=== PATIENT | female | born 1935 | race Caucasian/White ===

== ENCOUNTER → 2017-02-03 | Outpatient (CLI) | payer MEDICARE, BC ==
[~2017-02-03] MED LIST: AFRI0.055; ATOR10 PO; BENZ1CAP34 PO; CALTTAB5 PO; CENTTAB9 PO; CETI10CH PO; INFLIXIMAB; LATA.005%O OD; LEVA500T PO; LEVO.075 PO; LUTE6CAP7; METH2.5 PO; TIMO0.255 OU; ZOLE5P IV
[2017-02-03 12:08] LABS: AUTOMATED NEUTROPHIL # 2.5 TH/MM3 (1.8-7.7); BASOPHIL # 0.1 TH/MM3 (0-0.2); BASOPHIL % 2.2 % (0.0-2.0); EOSINOPHIL # 0.1 TH/MM3 (0-0.4); EOSINOPHIL % 2.9 % (0.0-4.0); HEMO FLAGS DIFF FINAL; LYMPH % 32.1 % (9.0-44.0); LYMPHOCYTE # 1.6 TH/MM3 (1.0-4.8); MEAN CELL VOLUME 93.4 FL (80.0-100.0); MEAN CORPUSCULAR HEMOGLOBIN 31.2 PG (27.0-34.0); MEAN CORPUSCULAR HGB CONC 33.4 % (32.0-36.0); MONO % 14.3 % (0.0-8.0); NEUT % 48.5 % (16.0-70.0); PLATELET COUNT 213 TH/MM3 (150-450); RED BLOOD COUNT 4.18 MIL/MM3 (4.00-5.30); RED CELL DISTRIBUTION WIDTH 14.3 % (11.6-17.2); WHITE BLOOD COUNT 5.1 TH/MM3 (4.0-11.0)
[2017-02-03 12:48] LABS: WESTERGREN SEDIMENTATION RATE 31 mm/hr (0-30)
[2017-02-03 13:09] LABS: BICARBONATE 26.2 MEQ/L (21.0-32.0); INDIRECT BILIRUBIN 0.3 MG/DL (0.0-0.8); POTASSIUM 4.2 MEQ/L (3.5-5.1); TOTAL BILIRUBIN ADULT 0.4 MG/DL (0.2-1.0)
== END ==
LOC: CLAB 11:33
PROVIDERS: ATTEND Family Medicine
DX: E03.9 Hypothyroidism, unspecified (principal); M25.473 Effusion, unspecified ankle; K22.70 Barrett's esophagus without dysplasia; R53.83 Other fatigue; E78.5 Hyperlipidemia, unspecified; M19.90 Unspecified osteoarthritis, unspecified site; Z79.899 Other long term (current) drug therapy; M06.9 Rheumatoid arthritis, unspecified; M08.1 Juvenile ankylosing spondylitis
CPT/HCPCS: 36415; 80048; 80061; 80076; 84443; 85025; 85652

== ENCOUNTER 2017-04-23 12:16 | Observation (INO) | payer MEDICARE, BC ==
[~2017-04-23] VITALS: Ht 160 cm; Wt 71.5 kg
[2017-04-23 12:17] VITALS: BP 210/91; PULSE 68; RESP 16; TEMP 98.1; O2SAT 94
--- NOTE | 2017-04-23 13:17 | RADRPT ---
EXAM DATE/TIME: 04/23/2017 13:09 [facility] COMPARISON: No previous studies available for comparison. INDICATIONS : Short of breath, syncope, vomiting. MEDICAL HISTORY : None. SURGICAL HISTORY : None. ENCOUNTER: Initial ACUITY: 2 days PAIN SCORE: 0/10 LOCATION: Bilateral chest FINDINGS: PA and lateral views of the chest demonstrate the lungs to be symmetrically aerated without evidence of mass, infiltrate or effusion. The cardiomediastinal contours are unremarkable. Osseous structure s are intact. CONCLUSION: No acute disease. Jono Lim MD on April 23, 2017 at 13:14 Board Certified Radiologist. This report was verified electronically.
[2017-04-23 13:23] LABS: AUTOMATED NEUTROPHIL # 5.8 TH/MM3 (1.8-7.7); BASOPHIL % 0.6 % (0.0-2.0); EOSINOPHIL # 0.1 TH/MM3 (0-0.4); EOSINOPHIL % 1.4 % (0.0-4.0); HEMATOCRIT 37.9 % (35.0-46.0); HEMOGLOBIN 12.8 GM/DL (11.6-15.3); LYMPH % 14.1 % (9.0-44.0); LYMPHOCYTE # 1.1 TH/MM3 (1.0-4.8); MEAN CELL VOLUME 91.8 FL (80.0-100.0); MEAN CORPUSCULAR HEMOGLOBIN 30.9 PG (27.0-34.0); MEAN CORPUSCULAR HGB CONC 33.7 % (32.0-36.0); MEAN PLATELET VOLUME 8.6 FL (7.0-11.0); MONOCYTE # 0.6 TH/MM3 (0-0.9); NEUT % 75.9 % (16.0-70.0); PLATELET COUNT 216 TH/MM3 (150-450); RED BLOOD COUNT 4.13 MIL/MM3 (4.00-5.30); RED CELL DISTRIBUTION WIDTH 13.7 % (11.6-17.2); WHITE BLOOD COUNT 7.6 TH/MM3 (4.0-11.0)
[2017-04-23 13:31] LABS: BACTERIA, URINE RARE /hpf; BILIRUBIN, URINE NEG (NEG); BLOOD, URINE SMALL (NEG); GLUCOSE,URINE 150 mg/dL (NEG); KETONE, URINE NEG (NEG); MUCUS URINE FEW /lpf (OCC); NITRITE,URINE NEG (NEG); SQUAMOUS EPITHELIAL CELL URINE <1 /hpf (0-5); URIC ACID CRYSTALS, URINE RARE /hpf; URINE COLOR YELLOW (YELLW/STRAW); URINE LEUKOCYTE ESTERASE NEG (NEG)
[2017-04-23 13:34] LABS: PROTHROMBIN TIME - PATIENT 10.3 SEC (9.8-11.6)
[2017-04-23 13:53] LABS: ALBUMIN 3.4 GM/DL (3.4-5.0); ALKALINE PHOSPHATASE 71 U/L (45-117); ALT (GPT) 15 U/L (10-53); AST (GOT) 15 U/L (15-37); BICARBONATE 24.7 MEQ/L (21.0-32.0); BLOOD UREA NITROGEN 17 MG/DL (7-18); CALCIUM 9.6 MG/DL (8.5-10.1); CHLORIDE 103 MEQ/L (98-107); GLOMERULAR FILTRATION RATE 53 ML/MIN (>89); GLUCOSE,RANDOM 160 MG/DL (74-106); MAGNESIUM 2.3 MG/DL (1.5-2.5); SODIUM (NA) 135 MEQ/L (136-145); TOTAL BILIRUBIN ADULT 0.5 MG/DL (0.2-1.0); TOTAL PROTEIN 9.4 GM/DL (6.4-8.2); TROPONIN I LESS THAN 0.02 NG/ML (0.02-0.05)
--- NOTE | 2017-04-23 14:05 | RADRPT ---
EXAM DATE/TIME: 04/23/2017 13:51 [facility] COMPARISON: No previous studies available for comparison. INDICATIONS : Syncope, fall RADIATION DOSE: 34.04 CTDIvol (mGy) MEDICAL HISTORY : Thyroid disease SURGICAL HISTORY : None. ENCOUNTER: Initial ACUITY: 2 days PAIN SCALE: 10/10 LOCATION: Bilateral cranial TECHNIQUE: Multiple contiguous axial images were obtained of the head. Using automated exposure control and adj ustment of the mA and/or kV according to patient size, radiation dose was kept as low as reasonably a chievable to obtain optimal diagnostic quality images. DICOM format image data is available electro nically for review and comparison. FINDINGS: CEREBRUM: The ventricles are normal for age with mild to moderate atrophic change. Extensive periventricular wh ite matter lucencies are present. No evidence of midline shift, mass lesion, hemorrhage or acute infa rction. No extra-axial fluid collections are seen. POSTERIOR FOSSA: The cerebellum and brainstem are intact. The 4th ventricle is midline. The cerebellopontine angle i s unremarkable. EXTRACRANIAL: The visualized portion of the orbits is intact. SKULL: The calvaria is intact. No evidence of skull fracture. CONCLUSION: 1. Negative acute trauma study with no evidence of hemorrhage or fracture. 2. Atrophy and chronic small vessel ischemic change. Reagan Morillo MD on April 23, 2017 at 14:02 Board Certified Radiologist. This report was verified electronically.
[2017-04-23] MEDS ORDERED: LEVO75TA3 PO (14:21)
[2017-04-23] MEDS ORDERED: ATOR10TA15 PO (14:21)
[2017-04-23] MEDS ORDERED: LUTE20CA PO (14:21)
[2017-04-23] MEDS ORDERED: PRESCAP6 PO (14:21)
[2017-04-23] MEDS ORDERED: TIMO0.5S30 EACH EYE (14:21)
--- NOTE | 2017-04-23 14:38 | PD ---
HPI Chief Complaint: Syncope/Near-Syncope Time Seen by Provider: 14:37 Travel History International Travel<30 days: No Contact w/Intl Traveler<30days: No Traveled to known affect area: No History of Present Illness HPI 82-year-old female came to the emergency room with history of syncopal episode yesterday twice. Patient says once was in the morning while she was standing in her kitchen trying to fix some breakfast and the other one was in the afternoon in the living room. Both times the event happened unannounced. She did not feel it coming but she was fortunate not to fall hard and injured herself. After that she remained a little shaky and was not comfortable going outside or driving. Today she called her primary care to see if he would see her and he recommended her to come to the emergency room. Patient again was not comfortable driving and had her neighbor bring her here. Patient denies of any chest pain. No shortness of breath. No pain or aches anywhere. Vital signs are stable. There was blood work and CAT scan ordered from the triage by the triage provider. By the time I went to see her all the test results were back. PFSH Past Medical History Narrative Medical List of her past medical, surgical, social and family history reviewed from the nursing note. Arthritis: Yes Cancer: Yes (SKIN) High Cholesterol: Yes Glaucoma: Yes Thyroid Disease: Yes Social History Alcohol Use: Yes Tobacco Use: No Substance Use: No Allergies-Medications (Allergen,Severity, Reaction): Coded Allergies: No Known Allergies (Verified Allergy, Unknown, 04/23/17) Comments No known drug allergies. Reported Meds & Prescriptions Reported Meds & Active Scripts Active Reported Preservision-Lutein (Multiple Vitamins W/ Minerals) 1 Cap 1 Cap PO DAILY Timolol Opth Drops 0.5 % Soln 1 Drop EACH EYE BID Atorvastatin (Atorvastatin Calcium) 10 Mg Tab 10 Mg PO HS Levothyroxine (Levothyroxine Sodium) 75 Mcg Tab 75 Mcg PO DAILY [Remicaid Infusion] Narrative Medication List of her home medications reviewed from the nursing note. Review of Systems Except as stated in HPI: all other systems reviewed are Neg Neurologic: Positive: Syncope Physical Exam Narrative GENERAL: Awake, alert, elderly, no obvious SKIN: Focused skin assessment warm/dry. HEAD: Atraumatic. Normocephalic. EYES: Pupils equal and round. No scleral icterus. No injection or drainage. ENT: No nasal bleeding or discharge. Mucous membranes pink and moist. NECK: Trachea midline. No JVD. CARDIOVASCULAR: Regular rate and rhythm. No murmur appreciated. RESPIRATORY: No accessory muscle use. Clear to auscultation. Breath sounds equal bilaterally. GASTROINTESTINAL: Abdomen soft, non-tender, nondistended. Hepatic and splenic margins not palpable. MUSCULOSKELETAL: No obvious deformities. No clubbing. No cyanosis. No edema. NEUROLOGICAL: Awake and alert. No obvious cranial nerve deficits. Motor grossly within normal limits. Normal speech. PSYCHIATRIC: Appropriate mood and affect; insight and judgment normal. Data Data Last Documented VS Orders Orders Electrocardiogram (04/23/17 12:30) Complete Blood Count With Diff (04/23/17 12:30) Comprehensive Metabolic Panel (04/23/17 12:30) Magnesium (Mg) (04/23/17 12:30) Ckmb (Isoenzyme) Profile (04/23/17 12:30) Troponin I (04/23/17 12:30) Act Partial Throm Time (Ptt) (04/23/17 12:30) Prothrombin Time / Inr (Pt) (04/23/17 12:30) Urinalysis - C+S If Indicated (04/23/17 12:30) Chest, Pa & Lat (04/23/17 12:30) Ct Brain W/O Iv Contrast(Rout) (04/23/17 12:30) Admit Order (Ed Use Only) (04/23/17 15:22) Labs Laboratory Tests Test 04/23/17 12:45 04/23/17 13:00 White Blood Count 7.6 TH/MM3 Red Blood Count 4.13 MIL/MM3 Hemoglobin 12.8 GM/DL Hematocrit 37.9 % Mean Corpuscular Volume 91.8 FL Mean Corpuscular Hemoglobin 30.9 PG Mean Corpuscular Hemoglobin Concent 33.7 % Red Cell Distribution Width 13.7 % Platelet Count 216 TH/MM3 Mean Platelet Volume 8.6 FL Neutrophils (%) (Auto) 75.9 % Lymphocytes (%) (Auto) 14.1 % Monocytes (%) (Auto) 8.0 % Eosinophils (%) (Auto) 1.4 % Basophils (%) (Auto) 0.6 % Neutrophils # (Auto) 5.8 TH/MM3 Lymphocytes # (Auto) 1.1 TH/MM3 Monocytes # (Auto) 0.6 TH/MM3 Eosinophils # (Auto) 0.1 TH/MM3 Basophils # (Auto) 0.0 TH/MM3 CBC Comment DIFF FINAL Differential Comment Prothrombin Time 10.3 SEC Prothromb Time International Ratio 1.0 RATIO Activated Partial Thromboplast Time 24.7 SEC Blood Urea Nitrogen 17 MG/DL Creatinine 1.00 MG/DL Random Glucose 160 MG/DL Total Protein 9.4 GM/DL Albumin 3.4 GM/DL Calcium Level 9.6 MG/DL Magnesium Level 2.3 MG/DL Alkaline Phosphatase 71 U/L Aspartate Amino Transf (AST/SGOT) 15 U/L Alanine Aminotransferase (ALT/SGPT) 15 U/L Total Bilirubin 0.5 MG/DL Sodium Level 135 MEQ/L Potassium Level 3.4 MEQ/L Chloride Level 103 MEQ/L Carbon Dioxide Level 24.7 MEQ/L Anion Gap 7 MEQ/L Estimat Glomerular Filtration Rate 53 ML/MIN Total Creatine Kinase 80 U/L Troponin I LESS THAN 0.02 NG/ML Urine Color YELLOW Urine Turbidity CLEAR Urine pH 5.0 Urine Specific [place] 1.024 Urine Protein TRACE mg/dL Urine Glucose (UA) 150 mg/dL Urine Ketones NEG mg/dL Urine Occult Blood SMALL Urine Nitrite NEG Urine Bilirubin NEG Urine Urobilinogen LESS THAN 2.0 MG/DL Urine Leukocyte Esterase NEG Urine RBC 4 /hpf Urine WBC 3 /hpf Urine Squamous Epithelial Cells <1 /hpf Urine Uric Acid Crystals RARE /hpf Urine Bacteria RARE /hpf Urine Mucus FEW /lpf Microscopic Urinalysis Comment CULT NOT INDICATED MDM Medical Decision Making Medical Screen Exam Complete: Yes Emergency Medical Condition: Yes Medical Record Reviewed: Yes Interpretation(s) Twelve-lead EKG was reviewed by me. Normal sinus rhythm, left axis deviation, nonspecific ST-T wave changes. Heart rate of 75 bpm per Differential Diagnosis Syncope, arrhythmia, intracranial bleed Narrative Course 3:39 PM blood test results are back and within acceptable limits. UA is negative. Chest x-ray and CT scan are negative as well. However given her age and the nature of the events I have recommended that she should be admitted for observation. Patient has agreed to that. I discussed the case with the hospitalist was accepted the case. Procedures EKG Prior to Arrival: No Diagnosis Primary Impression: Syncope Qualified Codes: R55 - Syncope and collapse Admitting Information Admitting Physician Requests: Observation Scripts Walker with Front Wheels (Walker with Front Wheels) 1 Mis Mis EA .XX DIRECTED, #1 0 Refills Prov: Dolly Marti DO 04/25/17 Naproxen (Naproxen) 250 Mg Tab 250 MG PO Q8HR Y for pain, #20 TAB Prov: Dolly Marti DO 04/25/17 Lisinopril (Lisinopril) 5 Mg Tab 5 MG PO DAILY for Blood Pressure Management, #30 TAB Prov: Dolly Marti DO 04/25/17 Delmer Vázquez MD Apr 23, 2017 14:38
[2017-04-23 15:00] VITALS: BP 160/72; PULSE 72; RESP 15; O2SAT 97
--- NOTE | 2017-04-23 15:10 | EKG ---
Date Performed: 04/23/2017 Time Performed: 12:44:57 PTAGE: 82 years EKG: Sinus rhythm POSSIBLE LEFT ATRIAL ENLARGEMENT PATTERN CONSISTENT WITH PULMONARY DISEASE INCOMPLETE RIGHT BUNDLE B RANCH BLOCK LEFT ANTERIOR FASCICULAR BLOCK POSSIBLE LEFT VENTRICULAR HYPERTROPHY ABNORMAL ECG No sign ificant change from prior electrocardiogram. PREVIOUS TRACING : 08/29/1999 06.10 DOCTOR: Shahbaz Church Interpretating Date/Time 04/23/2017 15:10:06
--- NOTE | 2017-04-23 15:43 | HHI.HP ---
HPI Service [facility] Primary Care Physician Ned Ramirez MD Admission Diagnosis Syncope Diagnoses: (1) Near syncope (2) Syncope Chief Complaint: I almost passed out Travel History International Travel<30 Days: No Contact w/Intl Traveler <30 Da: No Traveled to Known Affected Are: No History of Present Illness 82 years old female with a past medical history of MGUS, chronic vertigo, Hyperlipidemia presented to the ED for evaluation of two episodes of syncope/ near syncope which occurred the morning of 04/22/17 without any associated vertigo. Patient states the first episode happened while she was standing in her kitchen, she states she starting seeing stars and contreras and the next thing she noticed was she was on the floor but denies any head trauma. She denies any dizziness associated it. The second episode happened shortly in the living room however she did not fall hard. She states, she did have breakfast prior to those two episodes. She states, she had no complaint the night prior and felt well the day prior as well. She denies any GI symptoms.There was not bladder or bowel dysfunction. She currently denies any Shortness of breath or chest pain. Head CT was negative Review of Systems Except as stated in HPI: all other systems reviewed are Neg Past Family Social History Past Medical History Chronic vertigo GERD History glaucoma Hyperlipidemia Hypothyroidism Osteoarthritis RA MGUS Past Surgical History Cataract removal Reported Medications Preservision-Lutein (Multiple Vitamins W/ Minerals) 1 Cap 1 Cap PO DAILY Timolol Opth Drops 0.5 % Soln 1 Drop EACH EYE BID Atorvastatin (Atorvastatin Calcium) 10 Mg Tab 10 Mg PO HS Levothyroxine (Levothyroxine Sodium) 75 Mcg Tab 75 Mcg PO DAILY [Remicaid Infusion] Allergies: Coded Allergies: No Known Allergies (Verified Allergy, Unknown, 04/23/17) Family History She denies any family history of Heart disease, DM Social History Alcohol Use: Yes Tobacco Use: No Substance Use: No Physical Exam Vital Signs Vital Signs Date Time Temp Pulse Resp B/P (MAP) Pulse Ox O2 Delivery O2 Flow Rate FiO2 04/23/17 12:17 98.1 68 16 210/91 (130) 94 Room Air Physical Exam GENERAL: This is a well-nourished, well-developed patient, in no apparent distress. SKIN: No rashes, ecchymoses or lesions. Cool and dry. HEAD: Atraumatic. Normocephalic. No temporal or scalp tenderness. EYES: Pupils equal round and reactive. Extraocular motions intact. No scleral icterus. No injection or drainage. ENT: Nose without bleeding, purulent drainage or septal hematoma. Throat without erythema, tonsillar hypertrophy or exudate. Uvula midline. Airway patent. NECK: Trachea midline. No JVD or lymphadenopathy. Supple, nontender, no meningeal signs. CARDIOVASCULAR: Regular rate and rhythm without murmurs, gallops, or rubs. RESPIRATORY: Clear to auscultation. Breath sounds equal bilaterally. No wheezes , rales, or rhonchi. GASTROINTESTINAL: Abdomen soft, non-tender, nondistended. No hepato-splenomegaly , or palpable masses. No guarding. MUSCULOSKELETAL: Extremities without clubbing, cyanosis, or edema. No joint tenderness, effusion, or edema noted. No calf tenderness. Negative Homans sign bilaterally. NEUROLOGICAL: Awake and alert. Cranial nerves II through XII intact. Motor and sensory grossly within normal limits. Five out of 5 muscle strength in all muscle groups. Normal speech. Laboratory Laboratory Tests Test 04/23/17 12:45 04/23/17 13:00 White Blood Count 7.6 Red Blood Count 4.13 Hemoglobin 12.8 Hematocrit 37.9 Mean Corpuscular Volume 91.8 Mean Corpuscular Hemoglobin 30.9 Mean Corpuscular Hemoglobin Concent 33.7 Red Cell Distribution Width 13.7 Platelet Count 216 Mean Platelet Volume 8.6 Neutrophils (%) (Auto) 75.9 Lymphocytes (%) (Auto) 14.1 Monocytes (%) (Auto) 8.0 Eosinophils (%) (Auto) 1.4 Basophils (%) (Auto) 0.6 Neutrophils # (Auto) 5.8 Lymphocytes # (Auto) 1.1 Monocytes # (Auto) 0.6 Eosinophils # (Auto) 0.1 Basophils # (Auto) 0.0 CBC Comment DIFF FINAL Differential Comment Prothrombin Time 10.3 Prothromb Time International Ratio 1.0 Activated Partial Thromboplast Time 24.7 Blood Urea Nitrogen 17 Creatinine 1.00 Random Glucose 160 Total Protein 9.4 Albumin 3.4 Calcium Level 9.6 Magnesium Level 2.3 Alkaline Phosphatase 71 Aspartate Amino Transf (AST/SGOT) 15 Alanine Aminotransferase (ALT/SGPT) 15 Total Bilirubin 0.5 Sodium Level 135 Potassium Level 3.4 Chloride Level 103 Carbon Dioxide Level 24.7 Anion Gap 7 Estimat Glomerular Filtration Rate 53 Total Creatine Kinase 80 Troponin I LESS THAN 0.02 Urine Color YELLOW Urine Turbidity CLEAR Urine pH 5.0 Urine Specific [place] 1.024 Urine Protein TRACE Urine Glucose (UA) 150 Urine Ketones NEG Urine Occult Blood SMALL Urine Nitrite NEG Urine Bilirubin NEG Urine Urobilinogen LESS THAN 2.0 Urine Leukocyte Esterase NEG Urine RBC 4 Urine WBC 3 Urine Squamous Epithelial Cells <1 Urine Uric Acid Crystals RARE Urine Bacteria RARE Urine Mucus FEW Microscopic Urinalysis Comment CULT NOT INDICATED Result Diagram: 04/23/17 1245 04/23/17 1245 Imaging Last Impressions Head CT 04/23/17 1230 Signed Impressions: Service Date/Time: Sunday, April 23, 2017 13:51 - CONCLUSION: 1. Negative acute trauma study with no evidence of hemorrhage or fracture. 2. Atrophy and chronic small vessel ischemic change. Reagan Morillo MD Chest X-Ray 04/23/17 1230 Signed Impressions: Service Date/Time: Sunday, April 23, 2017 13:09 - CONCLUSION: No acute disease. Jono Lim MD Septic Shock Reassessment Septic shock perfusion: reassessment completed Caprini VTE Risk Assessment Caprini VTE Risk Assessment: Mod/High Risk (score >= 2) Caprini Risk Assessment Model Point Value = 1 Point Value = 2 Point Value = 3 Point Value = 5 Age 41-60 Minor surgery BMI > 25 kg/m2 Swollen legs Varicose veins or History of unexplained or recurrent spontaneous Oral contraceptives or hormone replacement Sepsis (< 1 month) Serious lung disease, including pneumonia (< 1 month) Abnormal pulmonary function Acute myocardial infarction Congestive heart failure (< 1 month) History of inflammatory bowel disease Medical patient at bed rest Age 61-74 Arthroscopic surgery Major open surgery (> 45 min) Laparoscopic surgery (> 45 min) Malignancy Confined to bed (> 72 hours) Immobilizing plaster cast Central venous access Age >= 75 History of VTE Family history of VTE Factor V Leiden Prothrombin [id number] Lupus anticoagulant Anticardiolipin antibodies Elevated serum homocysteine Heparin-induced thrombocytopenia Other congenital or acquired thrombophilia Stroke (< 1 month) Elective arthroplasty Hip, pelvis, or leg fracture Acute spinal cord injury (< 1 month) Prophylaxis Regimen Total Risk Factor Score Risk Level Prophylaxis Regimen 0-1 Low Early ambulation 2 Moderate Order ONE of the following: *Sequential Compression Device (SCD) *Heparin 5000 units SQ BID 3-4 Higher Order ONE of the following medications: *Heparin 5000 units SQ TID *Enoxaparin/Lovenox 40 mg SQ daily (WT < 150 kg, CrCl > 30 mL/min) *Enoxaparin/Lovenox 30 mg SQ daily (WT < 150 kg, CrCl > 10-29 mL/min) *Enoxaparin/Lovenox 30 mg SQ BID (WT < 150 kg, CrCl > 30 mL/min) AND/OR *Sequential Compression Device (SCD) 5 or more Highest Order ONE of the following medications: *Heparin 5000 units SQ TID (Preferred with Epidurals) *Enoxaparin/Lovenox 40 mg SQ daily (WT < 150 kg, CrCl > 30 mL/min) *Enoxaparin/Lovenox 30 mg SQ daily (WT < 150 kg, CrCl > 10-29 mL/min) *Enoxaparin/Lovenox 30 mg SQ BID (WT < 150 kg, CrCl > 30 mL/min) AND *Sequential Compression Device (SCD) Assessment and Plan Problem List: (1) Near syncope ICD Code: R55 - Syncope and collapse (2) Syncope ICD Code: R55 - Syncope and collapse Status: Acute Assessment and Plan 82 years old female with Near syncope/syncope This appears to be vasovagal Head CT noted and review by without any intracranial abnormality CXR noted and review by me without any cardiopulmonary disease CBC, initial Cardiac enzyme unremarkable Check carotid US, EEG as well as 2 D echo Check Orthostatic BP Achieve BP control PT consult to treat and eval Neurology necessary Hypokalemia Give Potassium 60Meq x1 Elevated Blood glucose Check hemoglobin A1C Benign labile hypertension Adjust BP medication accordingly Will start low dose Lisinopril 5mg daily Avoid rapid reduction/correction of BP DVT prophylaxis: B-SCD Code Status Full code Discussed Condition With patient, ED physician Problem Qualifiers (1) Syncope: Qualified Codes: R55 - Syncope and collapse Jono Mccollum MD Apr 23, 2017 15:43
[2017-04-23] MEDS ORDERED: ACETAMINOPHEN 325 MG TAB PO PRN (15:45)
[2017-04-23] MEDS ORDERED: NALOXONE HCL 0.4 MG/ML AMP IV PUSH PRN (15:45)
[2017-04-23] MEDS ORDERED: RESP: ALBUTEROL 2.5 MG/IPRATROPIUM 0.5 MG NEB (PRN) NEB (15:45)
[2017-04-23] MEDS ORDERED: ENALAPRILAT 2.5 MG/2 ML VIAL IV PUSH PRN (15:45)
[2017-04-23] MEDS ORDERED: SODIUM CHLORIDE 0.9% FLUSH 10 ML FLUSH IV FLUSH PRN (15:45)
[2017-04-23] MEDS ORDERED: ONDANSETRON HCL 4 MG/2 ML VIAL IVP PRN (15:45)
[2017-04-23 16:09] VITALS: BP 158/67
[2017-04-23 17:44] VITALS: BP 173/80; PULSE 74; RESP 18; TEMP 98; O2SAT 93
[2017-04-23] MEDS ORDERED: POTASSIUM CHLORIDE 10 MEQ CONTROLLED RELEASE TAB PO ONE (18:30)
[2017-04-23 19:47] VITALS: BP_SYST 170; BP_SYST 174; BP_SYST 191; BP_DIAS 74; BP_DIAS 81; BP_DIAS 85; PULSE 79; RESP 20; TEMP 97.7; O2SAT 93
[2017-04-23] MEDS ORDERED: TEMAZEPAM 15 MG CAP PO PRN (21:00)
[2017-04-23] MEDS ORDERED: METOPROLOL TARTRATE 50 MG TAB PO SCH (21:00)
--- NOTE | 2017-04-23 21:31 | RADRPT ---
EXAM DATE/TIME: 04/23/2017 20:52 [facility] COMPARISON: No previous studies available for comparison. INDICATIONS : Stenosis. MEDICAL HISTORY : Hypercholesterolemia. Hypothyroidism. Rheumatoid arthritis. Hypothyroidism. Chronic vertigo. Glaucoma . Hyperlipidemia. Arthritis. SURGICAL HISTORY : Cataract removal. ENCOUNTER: Initial ACUITY: 1 day PAIN SCORE: 0/10 LOCATION: Bilateral neck PEAK SYSTOLIC VELOCITIES (cm/sec): ICA/CCA RATIO: Right: 1.1 Left: 1.2 ICA: Right: 74 Left: 78 CCA: Right: 67 Left: 64 ECA: Right: 82 Left: 116 VERTEBRAL: Right: 39 antegrade Left: 35 antegrade Elevated flow velocities and ICA/CCA ratios have been found to correlate with increased degrees of vessel stenosis, calculated as percentage of diameter relative to a normal segment of distal ICA/CCA FINDINGS: RIGHT CAROTID: No significant stenosis is visualized. The waveforms are within normal limits. LEFT CAROTID: No significant stenosis is visualized. The waveforms are within normal limits. VERTEBRAL ARTERIES: Antegrade flow is seen in both vertebral arteries. MISCELLANEOUS: None. CONCLUSION: No acute disease. Doe Huang MD on April 23, 2017 at 21:27 Board Certified Radiologist. This report was verified electronically.
[2017-04-23] MEDS: SODIUM CHLORIDE 0.9% FLUSH 10 ML FLUSH IV FLUSH SCH (21:56)
[2017-04-23] MEDS: ACETAMINOPHEN 325 MG TAB PO PRN (21:56)
[2017-04-23] MEDS: ATORVASTATIN 10 MG TAB PO SCH (21:56)
[2017-04-23] MEDS: TIMOLOL MALEATE 0.5% OPHT SOLN 5 ML BTL EACH EYE SCH (22:31)
[2017-04-23 23:36] VITALS: BP 153/72; PULSE 71; RESP 18; TEMP 98.2; O2SAT 92
[2017-04-24 03:45] VITALS: BP 169/77; PULSE 77; RESP 18; TEMP 98.2; O2SAT 93
[2017-04-24] MEDS: LEVOTHYROXINE SODIUM 75 MCG TAB PO SCH (06:06)
[2017-04-24 07:32] LABS: AUTOMATED NEUTROPHIL # 4.5 TH/MM3 (1.8-7.7); BASOPHIL # 0.1 TH/MM3 (0-0.2); BASOPHIL % 1.2 % (0.0-2.0); EOSINOPHIL # 0.2 TH/MM3 (0-0.4); EOSINOPHIL % 2.8 % (0.0-4.0); HEMATOCRIT 37.6 % (35.0-46.0); HEMOGLOBIN 12.8 GM/DL (11.6-15.3); LYMPH % 22.2 % (9.0-44.0); LYMPHOCYTE # 1.7 TH/MM3 (1.0-4.8); MEAN CELL VOLUME 91.1 FL (80.0-100.0); MEAN CORPUSCULAR HEMOGLOBIN 30.9 PG (27.0-34.0); MEAN CORPUSCULAR HGB CONC 33.9 % (32.0-36.0); MEAN PLATELET VOLUME 8.7 FL (7.0-11.0); MONO % 13.7 % (0.0-8.0); NEUT % 60.1 % (16.0-70.0); PLATELET COUNT 193 TH/MM3 (150-450); RED BLOOD COUNT 4.13 MIL/MM3 (4.00-5.30); RED CELL DISTRIBUTION WIDTH 13.5 % (11.6-17.2); WHITE BLOOD COUNT 7.5 TH/MM3 (4.0-11.0)
[2017-04-24 07:58] LABS: ALBUMIN 3.2 GM/DL (3.4-5.0); ALKALINE PHOSPHATASE 69 U/L (45-117); ALT (GPT) 14 U/L (10-53); AST (GOT) 15 U/L (15-37); BICARBONATE 24.5 MEQ/L (21.0-32.0); BLOOD UREA NITROGEN 11 MG/DL (7-18); CALCIUM 9.4 MG/DL (8.5-10.1); CHLORIDE 105 MEQ/L (98-107); CREATININE 0.87 MG/DL (0.50-1.00); GLOMERULAR FILTRATION RATE 62 ML/MIN (>89); GLUCOSE,RANDOM 93 MG/DL (74-106); SODIUM (NA) 138 MEQ/L (136-145); TOTAL BILIRUBIN ADULT 0.5 MG/DL (0.2-1.0); TOTAL PROTEIN 9.1 GM/DL (6.4-8.2)
[2017-04-24] MEDS: SODIUM CHLORIDE 0.9% FLUSH 10 ML FLUSH IV FLUSH SCH ×2 (09:00→21:01)
[2017-04-24] MEDS: LISINOPRIL 5 MG TAB PO SCH (10:17)
[2017-04-24] MEDS: TIMOLOL MALEATE 0.5% OPHT SOLN 5 ML BTL EACH EYE SCH ×2 (10:17→21:00)
[2017-04-24] MEDS: ACETAMINOPHEN 325 MG TAB PO PRN (10:18)
--- NOTE | 2017-04-24 11:50 | HHI.PR ---
Subjective Remarks For fall, syncope. Patient is currently doing well. She complains of right- sided hip pain. No chest pain, shortness of breath, fever or chills. Objective Vitals Vital Signs Date Time Temp Pulse Resp B/P (MAP) Pulse Ox O2 Delivery O2 Flow Rate FiO2 04/24/17 03:45 98.2 77 18 169/77 (107) 93 04/23/17 23:36 98.2 71 18 153/72 (99) 92 04/23/17 19:47 97.7 79 20 170/74 (106) 93 191/85 (120) 174/81 (112) 04/23/17 17:44 98.0 74 18 173/80 (111) 93 04/23/17 16:09 158/67 (97) 04/23/17 15:00 72 15 160/72 (101) 97 Room Air 04/23/17 12:17 98.1 68 16 210/91 (130) 94 Room Air I/O 04/23/17 04/23/17 04/23/17 04/24/17 04/24/17 04/24/17 07:00 15:00 23:00 07:00 15:00 23:00 Intake Total 275 ml 480 ml Balance 275 ml 480 ml Intake Oral 275 ml 480 ml # Voids 2 Result Diagram: 04/24/17 0605 04/24/17 0605 Imaging Last Impressions Head CT 04/23/17 1230 Signed Impressions: Service Date/Time: Sunday, April 23, 2017 13:51 - CONCLUSION: 1. Negative acute trauma study with no evidence of hemorrhage or fracture. 2. Atrophy and chronic small vessel ischemic change. Reagan Morillo MD Chest X-Ray 04/23/17 1230 Signed Impressions: Service Date/Time: Sunday, April 23, 2017 13:09 - CONCLUSION: No acute disease. Jono Lim MD Carotid Artery Ultrasound 04/23/17 0000 Signed Impressions: Service Date/Time: Sunday, April 23, 2017 20:52 - CONCLUSION: No acute disease. Doe Huang MD Objective Remarks GENERAL: Alert, oriented 3, NAD. SKIN: Warm and dry. HEAD: Normocephalic. EYES: No scleral icterus. No injection or drainage. NECK: Supple, trachea midline. No JVD or lymphadenopathy. CARDIOVASCULAR: Regular rate and rhythm without murmurs, gallops, or rubs. RESPIRATORY: Breath sounds equal bilaterally. No accessory muscle use. GASTROINTESTINAL: Abdomen soft, non-tender, nondistended. MUSCULOSKELETAL: No cyanosis, or edema. BACK: Nontender without obvious deformity. No CVA tenderness. Procedures None A/P Problem List: (1) Near syncope ICD Code: R55 - Syncope and collapse (2) Syncope ICD Code: R55 - Syncope and collapse Status: Acute Assessment and Plan 82-year-old female came to the emergency room with history of syncopal episode on 04/22/2017 twice. Patient says once was in the morning while she was standing in her kitchen trying to fix some breakfast and the other one was in the afternoon in the living room. Both times the event happened unannounced. - Syncope, near syncope - Fall - Right hip pain - Likely vasovagal. CT head, CXR, Carotid US so far negative. - PT evaluation pending - Will obtain Hip Xray - Mild hypokalemia - resolved after KCL supplementation. - Hypertension - Hypothyroidism - Continue Lisinopril 5mg Qday - PRN Vasotec - Continue levothyroxine 75 g daily Full code. SCDs. Problem Qualifiers (1) Syncope: Qualified Codes: R55 - Syncope and collapse Dolly Marti DO Apr 24, 2017 11:50 am
[2017-04-24] MEDS ORDERED: traMADol HCL 50 MG TAB PO PRN (15:00)
--- NOTE | 2017-04-24 16:02 | RADRPT ---
EXAM DATE/TIME: 04/24/2017 15:55 [facility] COMPARISON: No previous studies available for comparison. INDICATIONS : Bilateral pelvic pain; fell yesterday. MEDICAL HISTORY : None. SURGICAL HISTORY : None. ENCOUNTER: Initial ACUITY: 2 days PAIN SCORE: 8/10 LOCATION: Bilateral pelvis FINDINGS: A single frontal view of the pelvis demonstrates no evidence of fracture. The bony pelvic ring is in tact. There is mild osteopenia. The soft tissues are intact. CONCLUSION: Negative trauma study with no evidence of fracture or malalignment. Regaan Morillo MD on April 24, 2017 at 15:58 Board Certified Radiologist. This report was verified electronically.
[2017-04-24 16:49] VITALS: BP 150/70; PULSE 69; RESP 18; TEMP 95.6; O2SAT 96
[2017-04-24] MEDS ORDERED: ACETAMINOPHEN/HYDROcodone 325 MG/5 MG TAB PO PRN (17:00)
[2017-04-24] MEDS ORDERED: cloNIDine HCL 0.1 MG TAB PO PRN (17:00)
[2017-04-24 17:18] LABS: HEMOGLOBIN A1C 5.9 % (4.3-6.0)
[2017-04-24 20:49] VITALS: BP 104/56; PULSE 70; RESP 17; TEMP 98; O2SAT 94
[2017-04-24] MEDS: ATORVASTATIN 10 MG TAB PO SCH (21:01)
--- NOTE | 2017-04-24 22:15 | MG ---
cc: ROSSY BEAUCHAMP MD Lab No: [id number] Date: 04/24/17 Age: 82 Sex: F Race: 1935 An 82-year-old female with history of syncope. 7- 9 Hz posterior rhythm, 20-50 microvolts. Frontal beta theta frequencies, good anterior to posterior gradient. Background slowing transitioned into drowsy state. Bursts of theta and delta occurring paroxysmally. Good EEG variability reactivity noted. Occasional eye movement blink artifact. Reasonable driving response with photic stimulation. Single lead EKG showing sinus rhythm. into stage I sleep as well. INTERPRETATION Normal awake sleep EEG. Clinical correlation. Rossy Beauchamp MD MG/ /9:14 PM /9:57 PM
--- NOTE | 2017-04-24 22:37 | RADRPT ---
EXAM DATE/TIME: 04/24/2017 19:52 [facility] COMPARISON: No previous studies available for comparison. INDICATIONS : Middle back pain after fall. MEDICAL HISTORY : None. SURGICAL HISTORY : None. ENCOUNTER: Initial ACUITY: 3 days PAIN SCORE: 10/10 LOCATION: middle back. FINDINGS: Degenerative changes are noted throughout the thoracic spine. There is mild compression deformity inv olving T11 of indeterminate age. Mild scoliosis of the thoracic spine is noted. CONCLUSION: Mild compression deformity involving T11 of indeterminate age. Degenerative changes t hroughout the thoracic spine. Mild scoliosis of the thoracic spine. Doe Huang MD on April 24, 2017 at 22:33 Board Certified Radiologist. This report was verified electronically.
--- NOTE | 2017-04-24 22:39 | RADRPT ---
EXAM DATE/TIME: 04/24/2017 19:57 [facility] COMPARISON: No previous studies available for comparison. INDICATIONS : Lower back pain after fall. MEDICAL HISTORY : None. SURGICAL HISTORY : None. ENCOUNTER: Initial ACUITY: 3 days PAIN SCORE: 10/10 LOCATION: lower back. FINDINGS: There is mild compression deformity involving the T11 vertebral body of indeterminate age. Clinical c orrelation is recommended. Degenerative changes are noted throughout the lumbar spine. There is no ac osage compression fracture of lumbar spine. No subluxation occurs during flexion or extension. CONCLUSION: Mild compression deformity involving T11 of indeterminate age. Clinical correlation is recommended. D egenerative changes within the lumbar spine. No acute compression fracture of lumbar spine. No sublux ation during flexion or extension. Doe Huang MD on April 24, 2017 at 22:35 Board Certified Radiologist. This report was verified electronically.
[2017-04-24 23:45] VITALS: BP 111/62; PULSE 71; RESP 17; TEMP 97.6; O2SAT 94
[2017-04-25 04:05] VITALS: BP 123/68; PULSE 74; RESP 17; TEMP 98; O2SAT 94
[2017-04-25] MEDS: LEVOTHYROXINE SODIUM 75 MCG TAB PO SCH (05:33)
[2017-04-25 07:41] VITALS: BP_SYST 111; BP_SYST 135; BP_SYST 136; BP_DIAS 62; BP_DIAS 77; BP_DIAS 86; PULSE 85; RESP 18; TEMP 98; O2SAT 95
[2017-04-25] MEDS: LISINOPRIL 5 MG TAB PO SCH (10:25)
[2017-04-25] MEDS: SODIUM CHLORIDE 0.9% FLUSH 10 ML FLUSH IV FLUSH SCH (10:27)
[2017-04-25] MEDS: TIMOLOL MALEATE 0.5% OPHT SOLN 5 ML BTL EACH EYE SCH (10:28)
[2017-04-25] MEDS ORDERED: KETOROLAC TROMETHAMINE 30 MG/ML (IVP) VIAL IV PUSH ONE (11:00)
[2017-04-25] MEDS ORDERED: NAPROXEN 250 MG TAB PO PRN (11:00)
[2017-04-25 11:50] VITALS: BP 111/63; PULSE 78; RESP 18; TEMP 98.3; O2SAT 92
[2017-04-25] MEDS ORDERED: LISI-519 PO (12:33)
[2017-04-25] MEDS ORDERED: WALKER WHEELS/F1 MIS ×2 (12:34→13:39)
[2017-04-25] MEDS ORDERED: NAPR250T4 PO (12:34)
--- NOTE | 2017-04-25 12:36 | HHI.DS ---
Discharge Summary Admission Date Apr 23, 2017 at 3:36 pm Discharge Date: Apr 25, 2017 Admitting Diagnosis Syncope (1) Near syncope ICD Code: R55 - Syncope and collapse (2) Syncope ICD Code: R55 - Syncope and collapse Status: Acute Procedures None Brief History - From Admission 82 years old female with a past medical history of MGUS, chronic vertigo, Hyperlipidemia presented to the ED for evaluation of two episodes of syncope/ near syncope which occurred the morning of 04/22/17 without any associated vertigo. Patient states the first episode happened while she was standing in her kitchen, she states she starting seeing stars and contreras and the next thing she noticed was she was on the floor but denies any head trauma. She denies any dizziness associated it. The second episode happened shortly in the living room however she did not fall hard. She states, she did have breakfast prior to those two episodes. She states, she had no complaint the night prior and felt well the day prior as well. She denies any GI symptoms.There was not bladder or bowel dysfunction. She currently denies any Shortness of breath or chest pain. Head CT was negative CBC/BMP: 04/24/17 0605 04/24/17 0605 Significant Findings Laboratory Tests Test 04/23/17 12:45 04/23/17 13:00 04/24/17 06:05 Neutrophils (%) (Auto) 75.9 % (16.0-70.0) Random Glucose 160 MG/DL (74-106) Total Protein 9.4 GM/DL (6.4-8.2) 9.1 GM/DL (6.4-8.2) Sodium Level 135 MEQ/L (136-145) Potassium Level 3.4 MEQ/L (3.5-5.1) Estimat Glomerular Filtration Rate 53 ML/MIN (>89) 62 ML/MIN (>89) Troponin I LESS THAN 0.02 NG/ML Urine Glucose (UA) 150 mg/dL (NEG) Urine Occult Blood SMALL (NEG) Urine RBC 4 /hpf (0-3) Urine Uric Acid Crystals RARE /hpf (NONE) Urine Bacteria RARE /hpf (NONE) Urine Mucus FEW /lpf (OCC) Monocytes (%) (Auto) 13.7 % (0.0-8.0) Monocytes # (Auto) 1.0 TH/MM3 (0-0.9) Albumin 3.2 GM/DL (3.4-5.0) Imaging Last Impressions Thoracic Spine X-Ray 04/24/17 0000 Signed Impressions: Service Date/Time: April 19:52 - CONCLUSION: Mild compression deformity involving T11 of indeterminate age. Degenerative changes throughout the thoracic spine. Mild scoliosis of the thoracic spine. Doe Huang MD Pelvis X-Ray 04/24/17 0000 Signed Impressions: Service Date/Time: April 15:55 - CONCLUSION: Negative trauma study with no evidence of fracture or malalignment. Reagan Morillo MD Lumbar Spine X-Ray 04/24/17 0000 Signed Impressions: Service Date/Time: April 19:57 - CONCLUSION: Mild compression deformity involving T11 of indeterminate age. Clinical correlation is recommended. Degenerative changes within the lumbar spine. No acute compression fracture of lumbar spine. No subluxation during flexion or extension. Doe Huang MD Head CT 04/23/17 1230 Signed Impressions: Service Date/Time: Sunday, April 23, 2017 13:51 - CONCLUSION: 1. Negative acute trauma study with no evidence of hemorrhage or fracture. 2. Atrophy and chronic small vessel ischemic change. Reagan Morillo MD Chest X-Ray 04/23/17 1230 Signed Impressions: Service Date/Time: Sunday, April 23, 2017 13:09 - CONCLUSION: No acute disease. Jono Lim MD Carotid Artery Ultrasound 04/23/17 0000 Signed Impressions: Service Date/Time: Sunday, April 23, 2017 20:52 - CONCLUSION: No acute disease. Doe Huang MD PE at Discharge GENERAL: Alert, oriented 3, NAD. SKIN: Warm and dry. HEAD: Normocephalic. EYES: No scleral icterus. No injection or drainage. NECK: Supple, trachea midline. No JVD or lymphadenopathy. CARDIOVASCULAR: Regular rate and rhythm without murmurs, gallops, or rubs. RESPIRATORY: Breath sounds equal bilaterally. No accessory muscle use. GASTROINTESTINAL: Abdomen soft, non-tender, nondistended. MUSCULOSKELETAL: No cyanosis, or edema. BACK: Nontender without obvious deformity. No CVA tenderness. Pt update on day of discharge Patient is currently doing well. No further syncopal episodes. No fever, chills. She has some back pain and wants to take acetaminophen and Naproxen. advised patient to take Naproxen with food. Hospital Course 82-year-old female came to the emergency room with history of syncopal episode on 04/22/2017 twice. Patient says once was in the morning while she was standing in her kitchen trying to fix some breakfast and the other one was in the afternoon in the living room. Both times the event happened unannounced. - Syncope, near syncope - Fall - Right hip pain - Likely vasovagal. CT head, CXR, Carotid US so far negative. - PT recommended home health PT. - Hip X-ray shows no acute fracture. - Lumbar spine x-ray shows mild compression deformity involving T11. Naproxen can be taken for pain/inflammation. - Echocardiogram is unremarkable. - Mild hypokalemia - resolved after KCL supplementation. - Hypertension - Hypothyroidism - Continue Lisinopril 5mg Qday - PRN Vasotec - Continue levothyroxine 75 g daily Full code. SCDs. Pt Condition on Discharge: Good Discharge Disposition: Disch w/ Home Health Serv Discharge Time: <= 30 minutes Discharge Instructions DIET: Follow Instructions for: Heart Healthy Diet Activities you can perform: Regular-No Restrictions Follow up Referrals: PCP Follow-up - 1 Week New Medications: Walker with Front Wheels (Walker with Front Wheels) 1 Mis Mis EA .XX DIRECTED, #1 0 Refills Lisinopril (Lisinopril) 5 Mg Tab 5 MG PO DAILY for Blood Pressure Management, #30 TAB Naproxen (Naproxen) 250 Mg Tab 250 MG PO Q8HR PRN for pain, #20 TAB Continued Medications: Atorvastatin (Atorvastatin) 10 Mg Tab 10 MG PO HS for Cholesterol Management, #30 TAB 0 Refills Levothyroxine (Levothyroxine) 75 Mcg Tab 75 MCG PO DAILY for Thyroid, #30 TAB 0 Refills Multiple Vitamins W/ Minerals (Preservision-Lutein) 1 Cap 1 CAP PO DAILY for Nutritional Supplement, CAP 0 Refills Timolol Opth Drops (Timolol Opth Drops) 0.5 % Soln 1 DROP EACH EYE BID for Glaucoma, #1 BOTTLE 0 Refills [Remicaid Infusion] () 0 Refills Dolly Marti DO Apr 25, 2017 12:36
--- NOTE | 2017-04-25 12:36 | HHI.FF ---
Face to Face Verification Diagnosis: (1) Syncope (2) Near syncope Physical Therapy Order: Evaluate and Treat, Improve ambulation, Strength and gait training Home Health Nursing Order: Medical education Signs/symptoms of disease process Nursing assessment with vital signs I have seen patient Camryn Mark on 04/25/17. My clinical findings support the need for the requested home health care services because: Ltd mobility - disease progression Deconditioned w/ increased weakness Limited ability to care for self Need for psychosocial assistance High risk of falls Infection w/ risk of complications I certify that my clinical findings support that this patient is homebound because: Impaired cognitive ability/safety Unsteady gait/balance Unsafe to leave home unassisted Need for psychosocial assistance Unable to use public transportation Dolly Marti DO Apr 25, 2017 12:36 pm
--- NOTE | 2017-04-25 13:22 | ECHRPT ---
Indication: SOB CONCLUSIONS Normal left ventricular size. Wall thickness is normal. The left ventricular systolic function is normal with an estimated ejection fraction in the range of 60-65%. No definite wall motion abnormalities. Trace mitral valve regurgitation. BP: 169 / 77 HR: 77 Rhythm: MEASUREMENTS (Male / Female) Normal Values Technical Quality: 2D ECHO LV Diastolic Diameter PLAX 4.0 cm 4.2 - 5.9 / 3.9 - 5.3 cm LV Systolic Diameter PLAX 2.8 cm IVS Diastolic Thickness 0.9 cm 0.6 - 1.0 / 0.6 - 0.9 cm LVPW Diastolic Thickness 0.7 cm 0.6 - 1.0 / 0.6 - 0.9 cm LV Relative Wall Thickness 0.4 M-MODE Aortic Root Diameter MM 2.9 cm AV Cusp Separation MM 2.0 cm DOPPLER Mitral E Point Velocity 81.6 cm/s Mitral A Point Velocity 146.0 cm/s Mitral E to A Ratio 0.6 TR Peak Velocity 171.0 cm/s TR Peak Gradient 11.7 mmHg FINDINGS LEFT VENTRICLE Normal left ventricular size. Wall thickness is normal. The left ventricular systolic function is normal with an estimated ejection fraction in the range of 60-65%. No definite wall motion abnormalities. RIGHT VENTRICLE Normal right ventricular size and systolic function. LEFT ATRIUM The left atrial size is normal. RIGHT ATRIUM The right atrial size is normal. ATRIAL SEPTUM Normal atrial septal thickness without atrial level shunting by limited color doppler interrogation. AORTA The aortic root and proximal ascending aorta are normal in size on limited imaging. MITRAL VALVE Trace mitral valve regurgitation. AORTIC VALVE Aortic valve sclerosis is present. TRICUSPID VALVE Structurally normal tricuspid valve. No tricuspid valve stenosis or regurgitation. PULMONARY VALVE Trivial pulmonary valve regurgitation. VESSELS The inferior vena cava is normal in size. PERICARDIUM No pericardial effusion. Panfilo Rodarte MD (Electronically Signed) Final Date:25 April 2017 13:21
== END 2017-04-25 16:22 | disposition home or self-care (01) ==
LOC: NEPE 12:16 → NEDA 15:36 → NEPGCP 16:27
PROVIDERS: ADMIT Hospitalist; ATTEND Hospitalist
DX: R55 Syncope and collapse (principal); E87.6 Hypokalemia; R73.9 Hyperglycemia, unspecified; I10 Essential (primary) hypertension; E03.9 Hypothyroidism, unspecified; M25.551 Pain in right hip; M19.90 Unspecified osteoarthritis, unspecified site; Z79.899 Other long term (current) drug therapy; R42 Dizziness and giddiness; K21.9 Gastro-esophageal reflux disease without esophagitis; E78.5 Hyperlipidemia, unspecified; I45.2 Bifascicular block
CPT/HCPCS: 70450; 71046; 72072; 72120; 72170; 80053; 81001; 82550; 83036; 83735; 84484; 85025; 85610; 85730; 93005; 93306; 93880; 95819; 96374; 97110; 97116; 97161; 99285; G0378; G8987; G8988; J1885